=== PATIENT | male | born 1970 | race Two or more races ===

== ENCOUNTER 2020-02-18 13:36 | Inpatient (IN) | payer MEDICAID, OTHER ==
[~2020-02-18] VITALS: Ht 185.4 cm; Wt 74.8 kg
--- NOTE | 2020-02-18 13:54 | Emergency Room Report ---
History of Present Illness General Chief Complaint: Abnormal Labs Source: Patient, EMS Present Illness HPI Patient is a 49-year-old male presents after increased blood sugar. Patient reports having prior history of type 1 diabetes. He states that he had been was compliant with his insulin. Denies any localized pain. Reports having increase generalized weakness. Denies any chest discomfort. Reports having some prior kidney disease. States that he had not been vomiting or having any diarrhea. Patient was brought in by EMS. Was noted to have blood sugar which registered high patient was brought in from home. Allergies: Coded Allergies: No Known Allergies (Unverified , 02/18/20) COVID-19 Screening Contact w/high risk pt: No Recent Travel to affected area: No Experienced COVID-19 symptoms?: No COVID-19 Testing performed EMERGENCY SERVICES PROFESSIONAL: Yes COVID-19 Screening: Negative COVID-19 COVID-19 Testing Source: [facility] Patient History Past Medical History: see triage record Reviewed Nursing Documentation: PMH: Agreed Nursing Documentation-PMH Past Medical History: No History, Except For Hx Hypertension: Yes Hx Diabetes: Yes Review of Systems All Other Systems: negative except mentioned in HPI Physical Exam Vital Signs Date Time Temp Pulse Resp B/P (MAP) Pulse Ox O2 Delivery O2 Flow Rate FiO2 02/18/20 13:33 97.0 74 18 134/80 (98) 97 Room Air Sp02 EP Interpretation: reviewed, normal General Appearance: normal inspection, well appearing, no apparent distress, alert, GCS 15 Head: atraumatic ENT: normal ENT inspection, hearing grossly normal, normal voice Neck: normal inspection, full range of motion, supple, no bony tend Respiratory: normal inspection, lungs clear, normal breath sounds, no respiratory distress, no retraction, no wheezing Cardiovascular #1: regular rate, rhythm, no edema Gastrointestinal: normal inspection, normal bowel sounds, non tender, soft, no guarding, no hernia Genitourinary: no CVA tenderness Musculoskeletal: normal inspection, back normal, normal range of motion Neurologic: alert, responsive, speech normal, normal inspection Psychiatric: normal inspection, judgement/insight normal, mood/affect normal Medical Decision Making Diagnostic Impression: Primary Impression: Hyperglycemia Additional Impressions: Renal disease Type I diabetes mellitus ER Course Patient presented for generalized weakness and high blood sugar. Differential diagnosis include was not limited to diabetic ketoacidosis, dehydration, electrolyte abnormality, among others. Because of complexity of patient's case laboratory tests and imaging studies were ordered.Laboratory testing showed elements of significant renal disease as well as hyperglycemia with sugar greater than 500. Patient started on insulin drip. He was given IV insulin as well as IV fluids. Patient's initial potassium was greater than 5 however this appears to be likely to drop with IV insulin therapy. Patient will be admitted for further evaluation and treatment of hyperglycemia. Lipase was also noted to be elevated although the patient does deny current abdominal pain. Labs Test 02/18/20 14:00 02/18/20 14:10 White Blood Count 5.4 K/UL (4.8-10.8) Red Blood Count 5.08 M/UL (4.70-6.10) Hemoglobin 13.5 G/DL (14.2-18.0) Hematocrit 44.4 % (42.0-52.0) Mean Corpuscular Volume 87 FL (80-99) Mean Corpuscular Hemoglobin 26.5 PG (27.0-31.0) Mean Corpuscular Hemoglobin Concent 30.3 G/DL (32.0-36.0) Red Cell Distribution Width 14.8 % (11.6-14.8) Platelet Count 297 K/UL (150-450) Mean Platelet Volume 6.8 FL (6.5-10.1) Neutrophils (%) (Auto) 64.1 % (45.0-75.0) Lymphocytes (%) (Auto) 27.5 % (20.0-45.0) Monocytes (%) (Auto) 5.8 % (1.0-10.0) Eosinophils (%) (Auto) 1.0 % (0.0-3.0) Basophils (%) (Auto) 1.6 % (0.0-2.0) Sodium Level 129 MMOL/L (136-145) Potassium Level 5.7 MMOL/L (3.5-5.1) Chloride Level 95 MMOL/L (98-107) Carbon Dioxide Level 21 MMOL/L (21-32) Anion Gap 14 mmol/L (5-15) Blood Urea Nitrogen 77 mg/dL (7-18) Creatinine 5.1 MG/DL (0.55-1.30) Estimat Glomerular Filtration Rate 12.2 mL/min (>60) Glucose Level 575 MG/DL (74-106) Calcium Level 8.6 MG/DL (8.5-10.1) Magnesium Level 2.7 MG/DL (1.8-2.4) Total Bilirubin 0.4 MG/DL (0.2-1.0) Aspartate Amino Transf (AST/SGOT) 34 U/L (15-37) Alanine Aminotransferase (ALT/SGPT) 34 U/L (12-78) Alkaline Phosphatase 87 U/L (46-116) Troponin I 0.008 ng/mL (0.000-0.056) Total Protein 7.4 G/DL (6.4-8.2) Albumin 2.8 G/DL (3.4-5.0) Globulin 4.6 g/dL Albumin/Globulin Ratio 0.6 (1.0-2.7) Lipase 614 U/L (73-393) Serum Alcohol < 3 mg/dL Acetone Level Positive-small (NEGATIVE) POC Whole Blood Glucose 535 MG/DL (74-106) EKG Diagnostic Results Rate: normal - 63 Rhythm: NSR ST Segments: no acute changes Last Vital Signs Date Time Temp Pulse Resp B/P (MAP) Pulse Ox O2 Delivery O2 Flow Rate FiO2 02/18/20 13:33 97.0 74 18 134/80 (98) 97 Room Air Status: improved Disposition: ADMITTED INPATIENT Condition: Serious Miguel Spain MD Feb 18, 2020 13:54
[2020-02-18] MEDS ORDERED: Insulin Human Regular 100units/ml 3ml IV ONE (14:00)
[2020-02-18] MEDS ORDERED: Insulin Reg 100 units Premix 100 ML IV SCH (14:00)
[2020-02-18 14:17] LABS: BASOPHILS % (AUTO) 1.6 % (0.0-2.0); HEMATOCRIT 44.4 % (42.0-52.0); HEMOGLOBIN 13.5 G/DL (14.2-18.0); LYMPHOCYTES % (AUTO) 27.5 % (20.0-45.0); MEAN CORPUSCULAR VOLUME 87 FL (80-99); MONOCYTES % (AUTO) 5.8 % (1.0-10.0); NEUTROPHILS % (AUTO) 64.1 % (45.0-75.0); PLATELET COUNT 297 K/UL (150-450); RED BLOOD COUNT 5.08 M/UL (4.70-6.10); RED CELL DISTRIBUTION WIDTH 14.8 % (11.6-14.8); WHITE BLOOD COUNT 5.4 K/UL (4.8-10.8)
[2020-02-18 14:34] LABS: ALANINE AMINOTRANSFERASE 34 U/L (12-78); ALBUMIN 2.8 G/DL (3.4-5.0); ALBUMIN/GLOBULIN RATIO 0.6 (1.0-2.7); ALKALINE PHOSPHATASE 87 U/L (46-116); ANION GAP 14 mmol/L (5-15); ASPARTATE AMINO TRANSFERASE 34 U/L (15-37); BILIRUBIN,TOTAL 0.4 MG/DL (0.2-1.0); BLOOD UREA NITROGEN 77 mg/dL (7-18); CALCIUM 8.6 MG/DL (8.5-10.1); CARBON DIOXIDE 21 MMOL/L (21-32); CHLORIDE 95 MMOL/L (98-107); CREATININE 5.1 MG/DL (0.55-1.30); POTASSIUM 5.7 MMOL/L (3.5-5.1); SODIUM 129 MMOL/L (136-145)
[2020-02-18 14:40] VITALS: BP 130/76
[2020-02-18 14:49] LABS: APPEARANCE,URINE CLEAR; BILIRUBIN, URINE NEGATIVE (NEGATIVE); COLOR,URINE PALE YELLOW; GLUCOSE, URINE (UA) 4+ (NEGATIVE); KETONES,URINE 1+ (NEGATIVE); LEUKOCYTE ESTERASE ,URINE NEGATIVE (NEGATIVE); NITRITE,URINE NEGATIVE (NEGATIVE); PH,URINE 5 (4.5-8.0); PROTEIN,URINE 3+ (NEGATIVE); UROBILINOGEN,URINE NORMAL MG/DL (0.0-1.0)
--- NOTE | 2020-02-18 15:02 | Diagnostic Imaging Report ---
EXAM: XR Chest, 1 View CLINICAL HISTORY: DIZZY TECHNIQUE: Frontal view of the chest. COMPARISON: No relevant prior studies available. FINDINGS: Lungs: Unremarkable. No consolidation. Pleural space: Unremarkable. No pneumothorax. Heart: Unremarkable. No cardiomegaly. Mediastinum: Unremarkable. Bones/joints: Unremarkable. IMPRESSION: Normal chest x-ray.
--- NOTE | 2020-02-18 15:33 | History and Physical ---
History of Present Illness General Date patient seen: Feb 18, 2020 Time patient seen: 15:45 Reason for Hospitalization: Abnormal Labs Present Illness HPI Patient is a 49-year-old male presents after increased blood sugar. Patient reports having prior history of type 1 diabetes. He states that he had been was compliant with his insulin. Denies any localized pain. Reports having increase generalized weakness. Denies any chest discomfort. Reports having some prior kidney disease. States that he had not been vomiting or having any diarrhea. Patient was brought in by EMS. Was noted to have blood sugar which registered high patient was brought in from home. Patient is a poor historian unable to obtain social, family history Allergies: Coded Allergies: No Known Allergies (Unverified , 02/18/20) COVID-19 Screening Contact w/high risk pt: No Recent Travel to affected area: No Experienced COVID-19 symptoms?: No Medication History Scheduled Insulin Glargine (Lantus), 0 SUBQ BEDTIME, (Reported) Miscellaneous Medications Insulin Aspart (Novolog), 10 UNIT SQ, (Reported) Patient History Healthcare decision maker Resuscitation status Advanced Directive on File Review of Systems All Other Systems: negative except mentioned in HPI Physical Exam Last 24 Hour Vital Signs Date Time Temp Pulse Resp B/P (MAP) Pulse Ox O2 Delivery O2 Flow Rate FiO2 02/18/20 14:40 97.0 89 17 130/76 99 Room Air 02/18/20 13:33 97.0 74 18 134/80 (98) 97 Room Air Laboratory Tests Test 02/18/20 14:00 02/18/20 14:10 02/18/20 14:31 02/18/20 15:13 White Blood Count 5.4 K/UL (4.8-10.8) Red Blood Count 5.08 M/UL (4.70-6.10) Hemoglobin 13.5 G/DL (14.2-18.0) L Hematocrit 44.4 % (42.0-52.0) Mean Corpuscular Volume 87 FL (80-99) Mean Corpuscular Hemoglobin 26.5 PG (27.0-31.0) L Mean Corpuscular Hemoglobin Concent 30.3 G/DL (32.0-36.0) L Red Cell Distribution Width 14.8 % (11.6-14.8) Platelet Count 297 K/UL (150-450) Mean Platelet Volume 6.8 FL (6.5-10.1) Neutrophils (%) (Auto) 64.1 % (45.0-75.0) Lymphocytes (%) (Auto) 27.5 % (20.0-45.0) Monocytes (%) (Auto) 5.8 % (1.0-10.0) Eosinophils (%) (Auto) 1.0 % (0.0-3.0) Basophils (%) (Auto) 1.6 % (0.0-2.0) Sodium Level 129 MMOL/L (136-145) L Potassium Level 5.7 MMOL/L (3.5-5.1) H Chloride Level 95 MMOL/L (98-107) L Carbon Dioxide Level 21 MMOL/L (21-32) Anion Gap 14 mmol/L (5-15) Blood Urea Nitrogen 77 mg/dL (7-18) H Creatinine 5.1 MG/DL (0.55-1.30) H Estimat Glomerular Filtration Rate 12.2 mL/min (>60) Glucose Level 575 MG/DL (74-106) *H Calcium Level 8.6 MG/DL (8.5-10.1) Magnesium Level 2.7 MG/DL (1.8-2.4) H Total Bilirubin 0.4 MG/DL (0.2-1.0) Aspartate Amino Transf (AST/SGOT) 34 U/L (15-37) Alanine Aminotransferase (ALT/SGPT) 34 U/L (12-78) Alkaline Phosphatase 87 U/L (46-116) Troponin I 0.008 ng/mL (0.000-0.056) Total Protein 7.4 G/DL (6.4-8.2) Albumin 2.8 G/DL (3.4-5.0) L Globulin 4.6 g/dL Albumin/Globulin Ratio 0.6 (1.0-2.7) L Lipase 614 U/L (73-393) H Serum Alcohol < 3 mg/dL Acetone Level Positive-small (NEGATIVE) POC Whole Blood Glucose 535 MG/DL (74-106) *H 432 MG/DL (74-106) H Urine Color Pale yellow Urine Appearance Clear Urine pH 5 (4.5-8.0) Urine Specific [place] 1.010 (1.005-1.035) Urine Protein 3+ (NEGATIVE) H Urine Glucose (UA) 4+ (NEGATIVE) H Urine Ketones 1+ (NEGATIVE) H Urine Blood 2+ (NEGATIVE) H Urine Nitrite Negative (NEGATIVE) Urine Bilirubin Negative (NEGATIVE) Urine Urobilinogen Normal MG/DL (0.0-1.0) Urine Leukocyte Esterase Negative (NEGATIVE) Urine RBC 2-4 /HPF (0 - 0) H Urine WBC 0-2 /HPF (0 - 0) Urine Squamous Epithelial Cells None /LPF (NONE/OCC) Urine Bacteria None /HPF (NONE) Height (Feet): 6 Height (Inches): 1.00 Weight (Pounds): 165 Medications Current Medications Medications (Trade) Dose Ordered Sig/Dougie Route PRN Reason Start Time Stop Time Status Last Admin Dose Admin Insulin Human (Reg)/Sodium Chloride 100 ml @ 7 mls/hr Q24H IV 02/18/20 14:00 02/19/20 04:18 02/18/20 14:19 Objective Narrative GENERAL: No acute distress, appears comfortable, alert, sitting up in bed eating HEENT: NCAT, non-icteric eyes, pupils PERRLA Neck: No cervical lymphadenopathy, trachea midline CV: Regular rate and rhythm, no murmurs rubs or gallops RESP: Clear to auscultation bilaterally, no wheezes/rhonchi/crackles ABD: soft, non-distended, no TTP EXT: Normal muscle tone, +5/5 muscle strength NEURO: No obvious deficits, alert and oriented x3 Assessment/Plan Problem List: (1) Hyperglycemia ICD Codes: R73.9 - Hyperglycemia, unspecified SNOMED: 85424533 (2) Renal disease ICD Codes: N28.9 - Disorder of kidney and ureter, unspecified SNOMED: 44021214 (3) Type I diabetes mellitus ICD Codes: E10.9 - Type 1 diabetes mellitus without complications SNOMED: 00571954 Assessment/Plan: 49-year-old male with past medical history of type 1 diabetes and noncompliance presents with hyperglycemia, and mild DKA anion gap of 14 #DKA #Diabetes type 1 -Status post IV fluids -Status post insulin gtt. -Continue Levemir and Lantus, per endocrinology recs -Endocrinology consult, appreciate recommendations #ZORAIDA -Renal ultrasound shows distended bladder no hydronephrosis -Monitor BMP -Monitor urine output -Nephrology consult, appreciate recommendations #Anemia, likely chronic disease -Anemia work-up -Continue to monitor CBC The time of my note may not reflect the time of my patient encounter. Total 73 minutes spent with patient with more than 50% dedicated to care coordination and counseling I spent an additional 37 minutes on reviewing patient's chart from admission. This includes review of imaging, labs, notes, and interpretation of results. Treasure Olmstead DO Feb 18, 2020 15:33
[2020-02-18] MEDS ORDERED: DiphenhydrAMINE 25mg Tab ORAL PRN (16:00)
[2020-02-18] MEDS ORDERED: Acetaminophen 650 MG SUPP RECTAL PRN ×2 (16:00)
[2020-02-18] MEDS ORDERED: Albuterol/Ipratropium 3ml neb HHN PRN (16:00)
[2020-02-18] MEDS ORDERED: Milk of Magnesia 30ml Ud ORAL PRN (16:00)
[2020-02-18] MEDS ORDERED: LORazepam Inj 2mg/ml 1ml IV PRN (16:00)
[2020-02-18] MEDS ORDERED: Metoclopramide 10mg/2ml Inj IVP PRN (16:00)
[2020-02-18 16:38] VITALS: BP 127/74
--- NOTE | 2020-02-18 17:27 | Consultation ---
History of Present Illness General Chief Complaint: Abnormal Labs Reason for Consultation: ZORAIDA, hyperglycemia Present Illness HPI 49-year-old male presents after increased blood sugar. Patient reports having prior history of type 1 diabetes. He states that he had been was compliant with his insulin. Denies any localized pain. Reports having increase generalized weakness. Denies any chest discomfort. Reports having some prior kidney disease. States that he had not been vomiting or having any diarrhea. Patient was brought in by EMS. Was noted to have blood sugar which registered high patient was brought in from home. Allergies: Coded Allergies: No Known Allergies (Unverified , 02/18/20) Medication History Scheduled Insulin Glargine (Lantus), 0 SUBQ BEDTIME, (Reported) Miscellaneous Medications Insulin Aspart (Novolog), 10 UNIT SQ, (Reported) Patient History Healthcare decision maker Resuscitation status Advanced Directive on File Review of Systems Constitutional: Reports: malaise, weakness Eye: Denies: no symptoms, see HPI, eye pain, blurred vision, tearing, double vision, nose pain, nose congestion, acuity changes, discharge, other ENT: Denies: no symptoms, see HPI, ear pain, ear discharge, nose pain, nose congestion, throat pain, throat swelling, mouth pain, hearing loss, nasal discharge, other Respiratory: Denies: no symptoms, see HPI, cough, orthopnea, shortness of breath, stridor, wheezing, PERALES, sputum, other Cardiovascular: Denies: no symptoms, see HPI, chest pain, edema, palpitations, syncope, PND, other Gastrointestinal: Denies: no symptoms, see HPI, abdominal pain, constipation, diarrhea, nausea, vomiting, melena, hematemesis, other Genitourinary: Denies: no symptoms, see HPI, discharge, dysuria, frequency, hematuria, pain, retention, incontinence, urgency, vag bleed/dc, other Musculoskeletal: Denies: no symptoms, see HPI, back pain, gout, joint pain, joint swelling, muscle pain, muscle stiffness, other Skin: Denies: no symptoms, see HPI, rash, change in color, change in hair/nails , dryness, lesions, other Psychiatric: Denies: no symptoms, see HPI, prior hx, anxiety, depressed feelings, emotional problems, SI, HI, hallucinations, other Neurological: Denies: no symptoms, see HPI, headache, numbness, paresthesia, seizure, tingling, tremors, focal weakness, syncope, dizziness, other Endocrine: Denies: no symptoms, see HPI, excessive sweating, flushing, intolerance to temperature, increased thirst, increased urine, unexplained weight loss, other Hematologic/Lymphatic: Denies: no symptoms, see HPI, anemia, blood clots, easy bleeding, easy bruising, swollen glands, diathesis, other Physical Exam General Appearance: WD/WN, no apparent distress Lines, tubes and drains: peripheral HEENT: normocephalic, atraumatic Neck: non-tender, normal alignment, supple Respiratory/Chest: lungs clear Cardiovascular/Chest: normal peripheral pulses, normal rate, regular rhythm Abdomen: normal bowel sounds, non tender, soft Neurologic: alert, oriented x 3 Last 24 Hour Vital Signs Date Time Temp Pulse Resp B/P (MAP) Pulse Ox O2 Delivery O2 Flow Rate FiO2 02/18/20 16:38 97.0 84 16 127/74 98 Room Air 02/18/20 14:40 97.0 89 17 130/76 99 Room Air 02/18/20 13:33 97.0 74 18 134/80 (98) 97 Room Air Laboratory Tests Test 02/18/20 14:00 02/18/20 14:10 02/18/20 14:31 02/18/20 15:13 White Blood Count 5.4 K/UL (4.8-10.8) Red Blood Count 5.08 M/UL (4.70-6.10) Hemoglobin 13.5 G/DL (14.2-18.0) L Hematocrit 44.4 % (42.0-52.0) Mean Corpuscular Volume 87 FL (80-99) Mean Corpuscular Hemoglobin 26.5 PG (27.0-31.0) L Mean Corpuscular Hemoglobin Concent 30.3 G/DL (32.0-36.0) L Red Cell Distribution Width 14.8 % (11.6-14.8) Platelet Count 297 K/UL (150-450) Mean Platelet Volume 6.8 FL (6.5-10.1) Neutrophils (%) (Auto) 64.1 % (45.0-75.0) Lymphocytes (%) (Auto) 27.5 % (20.0-45.0) Monocytes (%) (Auto) 5.8 % (1.0-10.0) Eosinophils (%) (Auto) 1.0 % (0.0-3.0) Basophils (%) (Auto) 1.6 % (0.0-2.0) Sodium Level Pending Potassium Level Pending Chloride Level Pending Carbon Dioxide Level Pending Anion Gap 14 mmol/L (5-15) Blood Urea Nitrogen Pending Creatinine Pending Estimat Glomerular Filtration Rate Pending Glucose Level Pending Calcium Level Pending Magnesium Level 2.7 MG/DL (1.8-2.4) H Total Bilirubin 0.4 MG/DL (0.2-1.0) Aspartate Amino Transf (AST/SGOT) 34 U/L (15-37) Alanine Aminotransferase (ALT/SGPT) 34 U/L (12-78) Alkaline Phosphatase 87 U/L (46-116) Total Creatine Kinase Pending Troponin I 0.008 ng/mL (0.000-0.056) Total Protein 7.4 G/DL (6.4-8.2) Albumin 2.8 G/DL (3.4-5.0) L Globulin 4.6 g/dL Albumin/Globulin Ratio 0.6 (1.0-2.7) L Lipase 614 U/L (73-393) H Serum Alcohol < 3 mg/dL Acetone Level Positive-small (NEGATIVE) POC Whole Blood Glucose 535 MG/DL (74-106) *H 432 MG/DL (74-106) H Urine Color Pale yellow Urine Appearance Clear Urine pH 5 (4.5-8.0) Urine Specific [place] 1.010 (1.005-1.035) Urine Protein 3+ (NEGATIVE) H Urine Glucose (UA) 4+ (NEGATIVE) H Urine Ketones 1+ (NEGATIVE) H Urine Blood 2+ (NEGATIVE) H Urine Nitrite Negative (NEGATIVE) Urine Bilirubin Negative (NEGATIVE) Urine Urobilinogen Normal MG/DL (0.0-1.0) Urine Leukocyte Esterase Negative (NEGATIVE) Urine RBC 2-4 /HPF (0 - 0) H Urine WBC 0-2 /HPF (0 - 0) Urine Squamous Epithelial Cells None /LPF (NONE/OCC) Urine Bacteria None /HPF (NONE) Test 02/18/20 16:09 02/18/20 17:12 POC Whole Blood Glucose 368 MG/DL (74-106) H 245 MG/DL (74-106) H Height (Feet): 6 Height (Inches): 1.00 Weight (Pounds): 165 Medications Current Medications Medications (Trade) Dose Ordered Sig/Dougie Route PRN Reason Start Time Stop Time Status Last Admin Dose Admin Acetaminophen (Tylenol) 650 mg Q4H PRN ORAL Mild Pain (Pain Scale 1-3) 02/18/20 16:00 03/19/20 15:59 Acetaminophen (Tylenol) 650 mg Q4H PRN ORAL fever 02/18/20 16:00 03/19/20 15:59 Acetaminophen (Tylenol) 650 mg Q4H PRN RECTAL Mild Pain/FEVER 02/18/20 16:00 03/19/20 15:59 Albuterol/ Ipratropium (Albuterol/ Ipratropium) 3 ml Q4H PRN HHN Shortness of Breath 02/18/20 16:00 02/23/20 15:59 Bisacodyl (Dulcolax) 10 mg DAILYPRN PRN RECTAL Constipation 02/18/20 16:00 05/18/20 15:59 Dextrose (Dextrose 50%) 25 ml Q30M PRN IV Hypoglycemia 02/18/20 16:00 05/18/20 15:59 Dextrose (Dextrose 50%) 50 ml Q30M PRN IV Hypoglycemia 02/18/20 16:00 05/18/20 15:59 Diphenhydramine HCl (Benadryl) 25 mg Q6H PRN ORAL Itching/Pruritis 02/18/20 16:00 03/19/20 15:59 Heparin Sodium (Porcine) (Heparin 5000 units/ml) 5,000 units EVERY 12 HOURS SUBQ 02/18/20 21:00 04/03/20 20:59 Lorazepam (Ativan 2mg/ml 1ml) 0.5 mg Q4H PRN IV For Anxiety 02/18/20 16:00 02/25/20 15:59 Magnesium Hydroxide (Mom) 30 ml HSPRN PRN ORAL Constipation 02/18/20 16:00 03/19/20 15:59 Metoclopramide HCl (Reglan) 10 mg Q6H PRN IVP Nausea & Vomiting 02/18/20 16:00 03/19/20 15:59 Ondansetron HCl (Zofran) 4 mg Q6H PRN IVP Nausea & Vomiting 02/18/20 16:00 03/19/20 15:59 Pantoprazole (Protonix) 40 mg DAILY ORAL 02/19/20 09:00 03/20/20 08:59 Sodium Chloride 1,000 ml @ 100 mls/hr Q10H IVLG 02/18/20 16:46 03/19/20 16:45 Zolpidem Tartrate (Ambien) 5 mg DAILYPRN PRN ORAL Insomnia 02/18/20 21:00 02/25/20 20:59 Assessment/Plan Diagnosis [place] I: #ZORAIDA - on cKD?- Atul pre-renal azotemia component due to volume depletion- also exacerbated by elevated CK level #elevated CK #DM- insulin dependent with hyperglycemia #Hyperkalemia- #pseudohyponatremia - IVF - urine studies - renal US - repeat UA - utp/cr - insulin - monitor lytes - hyponatremia and hyperkalemia should improve with hydration and insulin - BG control - endocrine erik Dotson spent 70 min - greater than 50% in care coordination and counseling Rey Carrasquillo M.D. Feb 18, 2020 17:27
[2020-02-18 18:10] LABS: CREATINE KINASE 1654 U/L (26-308)
[2020-02-18] MEDS ORDERED: LANTUS SOL100 UNIT/1 SUBQ (19:14)
[2020-02-18] MEDS ORDERED: NOVOLOG100 UNIT/4 SQ (19:14)
[2020-02-18 19:28] VITALS: BP 128/78
[2020-02-18 20:00] VITALS: BP 136/63
[2020-02-18] MEDS ORDERED: Zolpidem 5mg tab ORAL PRN (21:00)
[2020-02-18] MEDS: Heparin 5000 units/ml inj SUBQ SCH (21:02)
[2020-02-18] MEDS ORDERED: NovoLOG Insulin Flexpen SUBQ ONE (21:07)
[2020-02-18] MEDS: NovoLOG Insulin Flexpen SUBQ SCH ×2 (21:08→21:27)
[2020-02-19] VITALS: BP 124/82
[2020-02-19 04:00] VITALS: BP 130/89
[2020-02-19 05:59] LABS: BASOPHILS % (AUTO) 1.4 % (0.0-2.0); EOSINOPHILS % (AUTO) 2.7 % (0.0-3.0); HEMATOCRIT 41.1 % (42.0-52.0); HEMOGLOBIN 12.5 G/DL (14.2-18.0); LYMPHOCYTES % (AUTO) 29.3 % (20.0-45.0); MEAN CORPUSCULAR VOLUME 88 FL (80-99); MONOCYTES % (AUTO) 5.9 % (1.0-10.0); NEUTROPHILS % (AUTO) 60.7 % (45.0-75.0); PLATELET COUNT 300 K/UL (150-450); RED BLOOD COUNT 4.69 M/UL (4.70-6.10); RED CELL DISTRIBUTION WIDTH 14.7 % (11.6-14.8); WHITE BLOOD COUNT 4.9 K/UL (4.8-10.8)
[2020-02-19] MEDS: NovoLOG Insulin Flexpen SUBQ SCH ×7 (06:24→20:31)
[2020-02-19 06:26] LABS: ANION GAP 9 mmol/L (5-15); BLOOD UREA NITROGEN 59 mg/dL (7-18); CALCIUM 8.4 MG/DL (8.5-10.1); CARBON DIOXIDE 23 MMOL/L (21-32); CHLORIDE 106 MMOL/L (98-107); CHOLESTEROL 175 MG/DL (< 200); CREATININE 4.1 MG/DL (0.55-1.30); HDL CHOLESTEROL 52 MG/DL (40-60); POTASSIUM 4.9 MMOL/L (3.5-5.1); SODIUM 138 MMOL/L (136-145); TRIGLYCERIDES 129 MG/DL (30-150)
[2020-02-19 08:00] VITALS: BP 133/80
[2020-02-19] MEDS ORDERED: Levemir Flexpen SUBQ SCH (09:00)
--- NOTE | 2020-02-19 09:10 | Nephrology Progress Note ---
Assessment/Plan Plan #ZORAIDA - on cKD?- Atul pre-renal azotemia component due to volume depletion- also exacerbated by elevated CK level #elevated CK #DM- insulin dependent with hyperglycemia #Hyperkalemia- #pseudohyponatremia - IVF - urine studies - renal US - repeat UA - utp/cr - insulin - monitor lytes - hyponatremia and hyperkalemia should improve with hydration and insulin - BG control - endocrine erik Dotson spent 70 min - greater than 50% in care coordination and counseling Subjective ROS Limited/Unobtainable: No Constitutional: Reports: malaise, weakness HEENT: Denies: no symptoms, eye pain, blurred vision, tearing, double vision, ear pain, ear discharge, nose pain, nose congestion, throat pain, throat swelling, mouth pain, mouth swelling, other Genitourinary: Denies: no symptoms, burning, discharge, frequency, flank pain, hematuria, incontinence, pain, urgency, other Neurologic/Psychiatric: Denies: no symptoms, anxiety, depressed, emotional problems, headache, numbness, paresthesia, pre-existing deficit, seizure, tingling, tremors, weakness, other Subjective no acute events BG improving No chest pain No SOB Objective Objective Last 24 Hour Vital Signs Date Time Temp Pulse Resp B/P (MAP) Pulse Ox O2 Delivery O2 Flow Rate FiO2 02/19/20 04:00 Room Air 02/19/20 04:00 97.9 79 16 130/89 (103) 100 02/19/20 04:00 66 02/19/20 00:00 Room Air 02/19/20 00:00 79 02/19/20 00:00 98.4 77 20 124/82 (96) 100 02/18/20 20:04 Room Air 02/18/20 20:00 79 02/18/20 20:00 97.2 72 16 136/63 (87) 100 02/18/20 19:41 98.8 75 15 128/78 100 Room Air 02/18/20 19:28 98.8 75 15 128/78 100 Room Air 02/18/20 16:38 97.0 84 16 127/74 98 Room Air 02/18/20 14:40 97.0 89 17 130/76 99 Room Air 02/18/20 13:33 97.0 74 18 134/80 (98) 97 Room Air Intake and Output 02/18/20 02/19/20 19:00 07:00 Intake Total 21 ml 1300 ml Balance 21 ml 1300 ml Intake Oral 0 ml 400 ml IV Total 21 ml 900 ml # Voids 2 # Bowel Movements 2 Laboratory Tests 02/18/20 14:00: White Blood Count 5.4, Red Blood Count 5.08, Hemoglobin 13.5L, Hematocrit 44.4, Mean Corpuscular Volume 87, Mean Corpuscular Hemoglobin 26.5L, Mean Corpuscular Hemoglobin Concent 30.3L, Red Cell Distribution Width 14.8, Platelet Count 297, Mean Platelet Volume 6.8, Neutrophils (%) (Auto) 64.1, Lymphocytes (%) (Auto) 27.5, Monocytes (%) (Auto) 5.8, Eosinophils (%) (Auto) 1.0, Basophils (%) (Auto ) 1.6, Sodium Level [Pending], Potassium Level [Pending], Chloride Level [ Pending], Carbon Dioxide Level [Pending], Anion Gap 14, Blood Urea Nitrogen [ Pending], Creatinine [Pending], Estimat Glomerular Filtration Rate [Pending], Glucose Level [Pending], Calcium Level [Pending], Magnesium Level 2.7H, Total Bilirubin 0.4, Aspartate Amino Transf (AST/SGOT) 34, Alanine Aminotransferase ( ALT/SGPT) 34, Alkaline Phosphatase 87, Total Creatine Kinase 1654H, Troponin I 0.008, Total Protein 7.4, Albumin 2.8L, Globulin 4.6, Albumin/Globulin Ratio 0.6L, Lipase 614H, Serum Alcohol < 3, Acetone Level Positive-small 02/18/20 14:10: POC Whole Blood Glucose 535*H 02/18/20 14:31: Urine Color Pale yellow, Urine Appearance Clear, Urine pH 5, Urine Specific [place] 1.010, Urine Protein 3+H, Urine Glucose (UA) 4+H, Urine Ketones 1+H, Urine Blood 2+H, Urine Nitrite Negative, Urine Bilirubin Negative, Urine Urobilinogen Normal, Urine Leukocyte Esterase Negative, Urine RBC 2-4H, Urine WBC 0-2, Urine Squamous Epithelial Cells None, Urine Bacteria None 02/18/20 15:13: POC Whole Blood Glucose 432H 02/18/20 16:09: POC Whole Blood Glucose 368H 02/18/20 17:12: POC Whole Blood Glucose 245H 02/19/20 05:51: White Blood Count 4.9, Red Blood Count 4.69L, Hemoglobin 12.5L, Hematocrit 41.1L , Mean Corpuscular Volume 88, Mean Corpuscular Hemoglobin 26.6L, Mean Corpuscular Hemoglobin Concent 30.4L, Red Cell Distribution Width 14.7, Platelet Count 300, Mean Platelet Volume 6.5, Neutrophils (%) (Auto) 60.7, Lymphocytes (%) (Auto) 29.3, Monocytes (%) (Auto) 5.9, Eosinophils (%) (Auto) 2.7, Basophils (%) (Auto) 1.4, Sodium Level 138, Potassium Level 4.9, Chloride Level 106, Carbon Dioxide Level 23, Anion Gap 9, Blood Urea Nitrogen 59H, Creatinine 4.1H, Estimat Glomerular Filtration Rate 15.7, Glucose Level 242#H, Hemoglobin A1c 8.7H, Calcium Level 8.4L, Magnesium Level 2.3, Triglycerides Level 129, Cholesterol Level 175, LDL Cholesterol 95, HDL Cholesterol 52, Cholesterol/HDL Ratio 3.4, Thyroid Stimulating Hormone (TSH) 1.714 Height (Feet): 6 Height (Inches): 1.00 Weight (Pounds): 165 General Appearance: no apparent distress, alert EENT: PERRL/EOMI Neck: non-tender, normal alignment Cardiovascular: normal peripheral pulses, normal rate, regular rhythm Respiratory/Chest: chest wall non-tender, lungs clear Abdomen: normal bowel sounds, non tender, soft Extremities: normal range of motion, non-tender Neurologic: alert, oriented x 3 Rey Carrasquillo M.D. Feb 19, 2020 09:10
[2020-02-19] MEDS: Heparin 5000 units/ml inj SUBQ SCH ×2 (09:21→20:32)
[2020-02-19 12:00] VITALS: BP 130/77
--- NOTE | 2020-02-19 14:20 | Diagnostic Imaging Report ---
Indication: Acute renal failure, abnormal renal function tests Technique: Grayscale and duplex images of the kidneys, retroperitoneum, and bladder were obtained. Comparison: none Findings: Right kidney measures 9.4 cm in length. Left kidney measures 9.4 cm in length. Both kidneys demonstrate normal echogenicity. There is very slight fullness to the bilateral renal collecting systems but no simon hydronephrosis. No focal abnormality. Normal inferior vena cava. Bladder is distended, calculated volume 595 mL. Per technologist, patient describes no urge to void. Impression: Markedly distended bladder, calculated volume 595 mL Slight bilateral renal collecting system fullness, suspect related to the above.
[2020-02-19 16:00] VITALS: BP 127/75
--- NOTE | 2020-02-19 16:07 | General Progress Note ---
Assessment/Plan Assessment/Plan: 49-year-old male with past medical history of type 1 diabetes and noncompliance presents with hyperglycemia, and mild DKA anion gap of 14 #DKA #Diabetes type 1 -Status post IV fluids -Status post insulin gtt. -Continue Levemir and Lantus, per endocrinology recs -Endocrinology consult, appreciate recommendations #ZORAIDA -Renal ultrasound shows distended bladder no hydronephrosis -Monitor BMP -Monitor urine output -Nephrology consult, appreciate recommendations #Anemia, likely chronic disease -Anemia work-up -Continue to monitor CBC The time of my note may not reflect the time of my patient encounter. 34 minutes spent case, more than 50% dedicated to care coordination and counseling Subjective Date patient seen: Feb 19, 2020 Allergies: Coded Allergies: No Known Allergies (Unverified , 02/18/20) All Systems: reviewed and negative except above Subjective No acute events overnight Glucose improved Afebrile Objective Last 24 Hour Vital Signs Date Time Temp Pulse Resp B/P (MAP) Pulse Ox O2 Delivery O2 Flow Rate FiO2 02/19/20 12:00 97.0 61 22 130/77 (94) 100 02/19/20 12:00 Room Air 02/19/20 12:00 65 02/19/20 08:00 Room Air 02/19/20 08:00 97.5 79 21 133/80 (97) 100 02/19/20 08:00 78 02/19/20 04:00 Room Air 02/19/20 04:00 97.9 79 16 130/89 (103) 100 02/19/20 04:00 66 02/19/20 00:00 Room Air 02/19/20 00:00 79 02/19/20 00:00 98.4 77 20 124/82 (96) 100 02/18/20 20:04 Room Air 02/18/20 20:00 79 02/18/20 20:00 97.2 72 16 136/63 (87) 100 02/18/20 19:41 98.8 75 15 128/78 100 Room Air 02/18/20 19:28 98.8 75 15 128/78 100 Room Air 02/18/20 16:38 97.0 84 16 127/74 98 Room Air Intake and Output 02/18/20 02/19/20 19:00 07:00 Intake Total 21 ml 1300 ml Balance 21 ml 1300 ml Intake Oral 0 ml 400 ml IV Total 21 ml 900 ml # Voids 2 # Bowel Movements 2 Laboratory Tests 02/18/20 16:09: POC Whole Blood Glucose 368H 02/18/20 17:12: POC Whole Blood Glucose 245H 02/19/20 05:51: White Blood Count 4.9, Red Blood Count 4.69L, Hemoglobin 12.5L, Hematocrit 41.1L , Mean Corpuscular Volume 88, Mean Corpuscular Hemoglobin 26.6L, Mean Corpuscular Hemoglobin Concent 30.4L, Red Cell Distribution Width 14.7, Platelet Count 300, Mean Platelet Volume 6.5, Neutrophils (%) (Auto) 60.7, Lymphocytes (%) (Auto) 29.3, Monocytes (%) (Auto) 5.9, Eosinophils (%) (Auto) 2.7, Basophils (%) (Auto) 1.4, Sodium Level 138, Potassium Level 4.9, Chloride Level 106, Carbon Dioxide Level 23, Anion Gap 9, Blood Urea Nitrogen 59H, Creatinine 4.1H, Estimat Glomerular Filtration Rate 15.7, Glucose Level 242#H, Hemoglobin A1c 8.7H, Calcium Level 8.4L, Magnesium Level 2.3, Triglycerides Level 129, Cholesterol Level 175, LDL Cholesterol 95, HDL Cholesterol 52, Cholesterol/HDL Ratio 3.4, Thyroid Stimulating Hormone (TSH) 1.714 Height (Feet): 6 Height (Inches): 1.00 Weight (Pounds): 165 Objective GENERAL: No acute distress, appears comfortable, alert HEENT: NCAT, non-icteric eyes, pupils PERRLA Neck: No cervical lymphadenopathy, trachea midline CV: Regular rate and rhythm, no murmurs rubs or gallops RESP: Clear to auscultation bilaterally, no wheezes/rhonchi/crackles ABD: soft, non-distended, no TTP EXT: Normal muscle tone, +5/5 muscle strength NEURO: No obvious deficits, alert and oriented x3 Treasure Olmstead DO Feb 19, 2020 16:07
--- NOTE | 2020-02-19 17:45 | Consultation ---
DATE OF CONSULTATION: 02/19/2020 ENDOCRINOLOGY CONSULTATION CONSULTING PHYSICIAN: Nguyễn Chase MD REFERRING PHYSICIAN: Treasure Olmstead DO REASON FOR CONSULTATION: Diabetes management. HISTORY OF PRESENT ILLNESS: The patient is a 49-year-old male with history of insulin-dependent type 1 diabetes, who presented to the hospital with a high reading on his glucometer. The patient had been noted in mild DKA, was given IV fluid and IV insulin. Anion gap closed and admitted to the floor for observation and treatment. Also noted to have chronic kidney disease. I was called to manage diabetes. PAST MEDICAL HISTORY: Type 1 diabetes and chronic kidney disease. PAST SURGICAL HISTORY: None. FAMILY HISTORY: Noncontributory. SOCIAL HISTORY: No smoking, alcohol, or drug use. REVIEW OF SYSTEMS: As per HPI. LABORATORY VALUES: Sodium 138, potassium 4.9, chloride 106, bicarb 22, BUN 59, creatinine 4.1, glucose of 342. Hemoglobin A1c of 8.7. Lipase of 614. PHYSICAL EXAMINATION: GENERAL: Awake and alert. VITAL SIGNS: Blood pressure 130/89, pulse 66, temperature 97.2, respiratory rate of 12. HEENT: Pupils are equal and reactive to light. Sclerae anicteric. NECK: No JVD. LUNGS: Clear. HEART: Regular rate and rhythm. ABDOMEN: Positive bowel sounds. EXTREMITIES: No clubbing, cyanosis, or edema. DIAGNOSES: 1. Type 1 diabetes, out of control. 2. Mild DKA, resolved. 3. Chronic kidney disease. PLAN: 1. Start Levemir 15 units daily. 2. Start NovoLog 5 units before each meal. 3. NovoLog Insulin sliding scale before each meal and at bedtime. 4. Hypoglycemia protocol has been ordered. 5. Diabetic renal diet. 6. Further adjustment according to blood glucose values. Thank you Dr. Olmstead for the courtesy of this consultation. Nguyễn Chase M.D. DR: ALPESH JOB#: [id number] CC: HATTIE
[2020-02-19] MEDS ORDERED: Milk of Magnesia 30ml Ud ORAL PRN (18:30)
[2020-02-19] MEDS ORDERED: DiphenhydrAMINE 25mg Tab ORAL PRN (18:30)
[2020-02-19] MEDS ORDERED: LORazepam Inj 2mg/ml 1ml IV PRN (18:30)
[2020-02-19] MEDS ORDERED: Albuterol/Ipratropium 3ml neb HHN PRN (18:30)
[2020-02-19] MEDS ORDERED: Metoclopramide 10mg/2ml Inj IVP PRN (18:30)
[2020-02-19] MEDS ORDERED: Acetaminophen 650 MG SUPP RECTAL PRN (18:30)
[2020-02-19 20:00] VITALS: BP 147/82
[2020-02-19] MEDS ORDERED: Zolpidem 5mg tab ORAL PRN (21:00)
[2020-02-20] VITALS: BP 120/86
[2020-02-20 04:00] VITALS: BP 125/73
[2020-02-20] MEDS: NovoLOG Insulin Flexpen SUBQ SCH (06:11)
[2020-02-20] MEDS ORDERED: NovoLOG Insulin Flexpen SUBQ SCH ×2 (06:30→11:30)
--- NOTE | 2020-02-20 07:02 | General Progress Note ---
Assessment/Plan Problem List: (1) DKA (diabetic ketoacidoses) ICD Codes: E11.10 - Type 2 diabetes mellitus with ketoacidosis without coma SNOMED: 94400114, 264922959 (2) Type I diabetes mellitus ICD Codes: E10.9 - Type 1 diabetes mellitus without complications SNOMED: 20031527 (3) Renal disease ICD Codes: N28.9 - Disorder of kidney and ureter, unspecified SNOMED: 36126583 (4) Hyperglycemia ICD Codes: R73.9 - Hyperglycemia, unspecified SNOMED: 11730529 Assessment/Plan: increase Levemir 15 to 24 units daily increase Novolog 5 to 8 units ac tid continue Novolog sliding scale ac / hs Subjective Allergies: Coded Allergies: No Known Allergies (Unverified , 02/18/20) Subjective events noted glucose values elevated he received all the scheduled insulin Item Value Date Time Bedside Blood Glucose 238 mg/dl H 02/20/20 0616 Bedside Blood Glucose 360 mg/dl H 02/19/20 1630 Bedside Blood Glucose 352 mg/dl H 02/19/20 1233 Bedside Blood Glucose 199 mg/dl H 02/19/20 0920 Bedside Blood Glucose 199 mg/dl H 02/19/20 0624 Objective Last 24 Hour Vital Signs Date Time Temp Pulse Resp B/P (MAP) Pulse Ox O2 Delivery O2 Flow Rate FiO2 02/20/20 04:00 97.7 66 18 125/73 (90) 98 02/20/20 03:38 Room Air 02/20/20 00:09 Room Air 02/20/20 00:00 97.9 72 18 120/86 (97) 99 02/19/20 21:12 Room Air 02/19/20 20:00 Room Air 02/19/20 20:00 97.9 65 18 147/82 (103) 100 02/19/20 16:00 61 02/19/20 16:00 97.5 76 20 127/75 (92) 100 02/19/20 16:00 Room Air 02/19/20 12:00 97.0 61 22 130/77 (94) 100 02/19/20 12:00 Room Air 02/19/20 12:00 65 02/19/20 08:00 Room Air 02/19/20 08:00 97.5 79 21 133/80 (97) 100 02/19/20 08:00 78 Intake and Output 02/19/20 02/20/20 19:00 07:00 Intake Total 1500 ml 1500 ml Output Total 800 ml Balance 1500 ml 700 ml Intake Oral 1500 ml 1500 ml Output Urine Total 800 ml # Voids 6 4 # Bowel Movements 1 1 Laboratory Tests 02/20/20 02:35: Urine Color [Pending], Urine Appearance [Pending], Urine pH [Pending], Urine Specific [place] [Pending], Urine Protein [Pending], Urine Glucose (UA) [Pending ], Urine Ketones [Pending], Urine Blood [Pending], Urine Nitrite [Pending], Urine Bilirubin [Pending], Urine Urobilinogen [Pending], Urine Leukocyte Esterase [Pending], Urine Random Sodium [Pending], Urine Creatinine 65.7 Height (Feet): 6 Height (Inches): 1.00 Weight (Pounds): 165 General Appearance: no apparent distress Neck: normal alignment Cardiovascular: normal rate Respiratory/Chest: lungs clear Abdomen: normal bowel sounds Pelvis: normal external exam Objective Current Medications Medications (Trade) Dose Ordered Sig/Dougie Route PRN Reason Start Time Stop Time Status Last Admin Dose Admin Acetaminophen (Tylenol) 650 mg Q4H PRN ORAL Mild Pain (Pain Scale 1-3) 02/19/20 18:30 03/19/20 18:29 Acetaminophen (Tylenol) 650 mg Q4H PRN ORAL fever 02/19/20 18:30 03/19/20 18:29 Acetaminophen (Tylenol) 650 mg Q4H PRN RECTAL Mild Pain/FEVER 02/19/20 18:30 03/19/20 18:29 Albuterol/ Ipratropium (Albuterol/ Ipratropium) 3 ml Q4H PRN HHN Shortness of Breath 02/19/20 18:30 02/23/20 18:29 Bisacodyl (Dulcolax) 10 mg DAILYPRN PRN RECTAL Constipation 02/19/20 18:30 05/19/20 18:29 Dextrose (Dextrose 50%) 25 ml Q30M PRN IV Hypoglycemia 02/19/20 18:30 05/18/20 20:29 Dextrose (Dextrose 50%) 50 ml Q30M PRN IV Hypoglycemia 02/19/20 18:30 05/18/20 20:29 Diphenhydramine HCl (Benadryl) 25 mg Q6H PRN ORAL Itching/Pruritis 02/19/20 18:30 03/19/20 18:29 Heparin Sodium (Porcine) (Heparin 5000 units/ml) 5,000 units EVERY 12 HOURS SUBQ 02/19/20 21:00 04/03/20 20:59 02/19/20 20:32 Insulin Aspart (NovoLOG) BEFORE MEALS AND HS SUBQ 02/19/20 21:00 05/18/20 20:59 02/20/20 06:11 Insulin Aspart (NovoLOG) 5 units BEFORE MEALS SUBQ 02/20/20 06:30 05/18/20 21:07 02/20/20 06:09 Insulin Detemir (Levemir) 15 units DAILY SUBQ 02/20/20 09:00 05/19/20 08:59 Lorazepam (Ativan 2mg/ml 1ml) 0.5 mg Q4H PRN IV For Anxiety 02/19/20 18:30 02/25/20 18:29 Magnesium Hydroxide (Mom) 30 ml HSPRN PRN ORAL Constipation 02/19/20 18:30 03/20/20 18:29 Metoclopramide HCl (Reglan) 10 mg Q6H PRN IVP Nausea & Vomiting 02/19/20 18:30 03/19/20 18:29 Ondansetron HCl (Zofran) 4 mg Q6H PRN IVP Nausea & Vomiting 02/19/20 18:30 03/19/20 18:29 Pantoprazole (Protonix) 40 mg DAILY ORAL 02/20/20 09:00 03/20/20 08:59 Sodium Chloride 1,000 ml @ 150 mls/hr Q6H40M IVLG 02/19/20 18:15 03/19/20 16:45 02/20/20 06:05 Zolpidem Tartrate (Ambien) 5 mg DAILYPRN PRN ORAL Insomnia 02/19/20 21:00 02/25/20 20:59 Nguyễn Chase MD Feb 20, 2020 07:02
[2020-02-20 07:49] LABS: APPEARANCE,URINE CLEAR; BILIRUBIN, URINE NEGATIVE (NEGATIVE); COLOR,URINE PALE YELLOW; GLUCOSE, URINE (UA) 1+ (NEGATIVE); KETONES,URINE NEGATIVE (NEGATIVE); LEUKOCYTE ESTERASE ,URINE NEGATIVE (NEGATIVE); NITRITE,URINE NEGATIVE (NEGATIVE); PH,URINE 5 (4.5-8.0); PROTEIN,URINE 3+ (NEGATIVE); UROBILINOGEN,URINE NORMAL MG/DL (0.0-1.0)
[2020-02-20 08:00] VITALS: BP 120/71
[2020-02-20 08:21] LABS: BASOPHILS % (AUTO) 1.2 % (0.0-2.0); EOSINOPHILS % (AUTO) 2.7 % (0.0-3.0); HEMATOCRIT 41.4 % (42.0-52.0); HEMOGLOBIN 12.7 G/DL (14.2-18.0); LYMPHOCYTES % (AUTO) 44.6 % (20.0-45.0); MEAN CORPUSCULAR VOLUME 87 FL (80-99); MONOCYTES % (AUTO) 4.8 % (1.0-10.0); NEUTROPHILS % (AUTO) 46.8 % (45.0-75.0); PLATELET COUNT 284 K/UL (150-450); RED BLOOD COUNT 4.77 M/UL (4.70-6.10); RED CELL DISTRIBUTION WIDTH 14.4 % (11.6-14.8); WHITE BLOOD COUNT 3.6 K/UL (4.8-10.8)
[2020-02-20 08:38] LABS: ANION GAP 10 mmol/L (5-15); BLOOD UREA NITROGEN 46 mg/dL (7-18); CALCIUM 8.3 MG/DL (8.5-10.1); CARBON DIOXIDE 24 MMOL/L (21-32); CHLORIDE 103 MMOL/L (98-107); CREATININE 3.5 MG/DL (0.55-1.30); POTASSIUM 4.3 MMOL/L (3.5-5.1); SODIUM 136 MMOL/L (136-145)
[2020-02-20 08:45] LABS: CREATINE KINASE 668 U/L (26-308)
[2020-02-20] MEDS: Heparin 5000 units/ml inj SUBQ SCH (08:46)
--- NOTE | 2020-02-20 08:57 | Discharge Instructions ---
Discharge Instructions Discharge Instructions Follow up with: Dr. Carrasquillo and Dr. Chase as O/p. F/u w/PCP for medication adjustments. For Congestive Heart Failure Reminder Report to your physician any weight gain of 5 pounds or more in one week. Alin Proctor M.D. Feb 20, 2020 08:57
[2020-02-20] MEDS ORDERED: Levemir Flexpen SUBQ SCH ×2 (09:00)
[2020-02-20] MEDS ORDERED: NOVOLOG100 UNITS1 SUBQ ×2 (09:00)
[2020-02-20] MEDS ORDERED: LEVEMIR FL100 UNIT/1 SUBQ (09:00)
--- NOTE | 2020-02-20 09:02 | Discharge Summary ---
Discharge Summary Hospital Course Date of Admission Feb 18, 2020 at 15:12 Date of Discharge Admitting Diagnosis uncontrolled diabetes, renal insufficiency ELLIOT Elias is a 50 year old male who was admitted on Feb 18, 2020 at 15:12 for Uncontrolled Diabetes, Renal Insufficiency. PE: General: NAD, A&O x 3 HEENT: NCAT, EOMi, MMM CV: RRR, no murmurs, rubs, or gallops Pulm: CTAB, No wheezes, rhonchi, or rales, no accessory muscle usage or conversational dyspnea GI: Soft, nontender, nondistended, bowel sounds present Ext: No lower extremity edema bilaterally Skin: no rashes lesions or ulcers Msk: Joints symmetrical in upper extremity and lower extremity bilaterally, no joint swelling. Neuro: CN 2-12 grossly intact bilaterally, no focal signs. Hospital Course 49-year-old male with past medical history of type 1 diabetes and noncompliance presents with hyperglycemia, and mild DKA anion gap of 14. Patient was initially admitted to ICU, was started on insulin GGT, IVF. Patient improved, was sent to regular floor. Endocrine was consulted and adjusted patient's insulin to NovoLog 8 units qAC, insulin detemir 24 units sq daily as well as insulin sliding scale. Pt was noted to have ZORAIDA, nephro consulted and renal US w / distended bladder. Discussed with nephro, stated patient okay for DC with follow-up as outpatient. Patient DC in stable condition with instructions to follow-up with PCP, hardware design engineer and visual designer as outpatient. #DKA #Diabetes type 1 #ZORAIDA #Anemia, likely chronic disease D/c planning >30 mins. Additional 25 mins spent on chart review, previous H&P, progress notes, event management consultant notes, labs/imaging. Discharge Medications New Medications: Insulin Aspart (Novolog Flexpen) 100 Unit/1 Ml Insuln.pen 0 UNITS SUBQ BEFORE MEALS AND HS for 90 Days, #20 EA 3 Refills Insulin Aspart (Novolog Flexpen) 100 Unit/1 Ml Insuln.pen 8 UNITS SUBQ BEFORE MEALS for 90 Days, #30 EA 3 Refills Insulin Detemir (Levemir Flexpen) 100 Unit/1 Ml Insuln.pen 24 UNITS SUBQ DAILY for 90 Days, #60 EA 3 Refills Discontinued Medications: Insulin Aspart (Novolog) 100 Unit/1 Ml Cartridge 10 UNIT SQ for hyperglycemia Insulin Glargine (Lantus) 100 Unit/1 Ml Insuln.pen 0 SUBQ BEDTIME for hyperglycemia, #1 EA 0 Refills Discharge Condition Upon Discharge: stable Discharge Vital Signs Last Vital Signs Date Time Temp Pulse Resp B/P (MAP) Pulse Ox O2 Delivery O2 Flow Rate FiO2 02/20/20 08:00 97.7 68 18 120/71 (87) 98 02/20/20 03:38 Room Air Discharge Disposition Patient was discharged to home. Discharge Instructions Discharge Instructions Follow up with: Dr. Carrasquillo and Dr. Chase as O/p. F/u w/PCP for medication adjustments. Alin Proctor M.D. Feb 20, 2020 09:02
[2020-02-20 09:22] LABS: PHOSPHORUS 3.1 MG/DL (2.5-4.9)
--- NOTE | 2020-02-20 12:45 | Nephrology Progress Note ---
Assessment/Plan Plan #ZORAIDA - on cKD?- Atul pre-renal azotemia component due to volume depletion- also exacerbated by elevated CK level #elevated CK #DM- insulin dependent with hyperglycemia #Hyperkalemia- #pseudohyponatremia - IVF - urine studies - renal US - repeat UA - utp/cr - insulin - monitor lytes - hyponatremia and hyperkalemia should improve with hydration and insulin - BG control - endocrine erik Dotson spent 70 min - greater than 50% in care coordination and counseling Subjective Subjective no acute events BG improving No chest pain No SOB Objective Objective Last 24 Hour Vital Signs Date Time Temp Pulse Resp B/P (MAP) Pulse Ox O2 Delivery O2 Flow Rate FiO2 02/20/20 08:00 Room Air 02/20/20 08:00 97.7 68 18 120/71 (87) 98 02/20/20 04:00 97.7 66 18 125/73 (90) 98 02/20/20 03:38 Room Air 02/20/20 00:09 Room Air 02/20/20 00:00 97.9 72 18 120/86 (97) 99 02/19/20 21:12 Room Air 02/19/20 20:00 Room Air 02/19/20 20:00 97.9 65 18 147/82 (103) 100 02/19/20 16:00 61 02/19/20 16:00 97.5 76 20 127/75 (92) 100 02/19/20 16:00 Room Air Intake and Output 02/19/20 02/20/20 19:00 07:00 Intake Total 1500 ml 1500 ml Output Total 800 ml Balance 1500 ml 700 ml Intake Oral 1500 ml 1500 ml Output Urine Total 800 ml # Voids 6 4 # Bowel Movements 1 1 Laboratory Tests 02/20/20 02:35: Urine Color Pale yellow, Urine Appearance Clear, Urine pH 5, Urine Specific [place] 1.010, Urine Protein 3+H, Urine Glucose (UA) 1+H, Urine Ketones Negative , Urine Blood 1+H, Urine Nitrite Negative, Urine Bilirubin Negative, Urine Urobilinogen Normal, Urine Leukocyte Esterase Negative, Urine RBC 2-4H, Urine WBC 0-2, Urine Squamous Epithelial Cells Occasional, Urine Bacteria Occasional, Urine Hyaline Casts 0-2H, Urine Random Sodium 67, Urine Creatinine 65.7 02/20/20 07:35: White Blood Count 3.6L, Red Blood Count 4.77, Hemoglobin 12.7L, Hematocrit 41.4L , Mean Corpuscular Volume 87, Mean Corpuscular Hemoglobin 26.6L, Mean Corpuscular Hemoglobin Concent 30.7L, Red Cell Distribution Width 14.4, Platelet Count 284, Mean Platelet Volume 6.6, Neutrophils (%) (Auto) 46.8, Lymphocytes (%) (Auto) 44.6, Monocytes (%) (Auto) 4.8, Eosinophils (%) (Auto) 2.7, Basophils (%) (Auto) 1.2, Sodium Level 136, Potassium Level 4.3, Chloride Level 103, Carbon Dioxide Level 24, Anion Gap 10, Blood Urea Nitrogen 46H, Creatinine 3.5H, Estimat Glomerular Filtration Rate 18.7, Glucose Level 216H, Calcium Level 8.3L, Phosphorus Level 3.1, Magnesium Level 1.8, Total Creatine Kinase 668H Height (Feet): 6 Height (Inches): 1.00 Weight (Pounds): 165 Rey Carrasquillo M.D. Feb 20, 2020 12:45
== END 2020-02-20 11:59 | disposition home or self-care (01) | DRG 420 ==
LOC: EDBD 13:36 → EMR 14:25 → EDBEDREQ 14:45 → 2W 15:12 → EDBEDREQ 15:18 → 4E 02-19 18:15
DX: E10.10 Type 1 diabetes mellitus with ketoacidosis without coma (principal); N17.9 Acute kidney failure, unspecified; E10.22 Type 1 diabetes mellitus with diabetic chronic kidney disease; N18.9 Chronic kidney disease, unspecified; D63.1 Anemia in chronic kidney disease; Z79.4 Long term (current) use of insulin; E87.5 Hyperkalemia
CPT/HCPCS: 36415; 71045; 76770; 80048; 80053; 80061; 81003; 82009; 82550; 82570; 82962; 83036; 83690; 83735; 84100; 84300; 84443; 84484; 85025; 87081; 93005; 96365; 96366; 96375; 99285; G0480; J1815; J7030; S5561